=== PATIENT | female | born 1975 | race Caucasian/White ===

== ENCOUNTER 2023-10-21 08:10 | Outpatient (AMB) | payer OTHER, SELFPAY ==
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
[2023-10-21 08:14] VITALS: BP 122/70; PULSE 73; TEMP 36.8; O2SAT 98; BMI 22.1
== END 2023-10-21 08:47 | disposition home or self-care (01) ==
PROVIDERS: Visit Provider Physician Assistant
DX: J06.9 Acute upper respiratory infection, unspecified (principal); Z13.9 Encounter for screening, unspecified
CPT/HCPCS: 87880; 99203

== ENCOUNTER 2023-10-21 08:36 | Outpatient (REF) | payer OTHER, SELFPAY ==
[2023-10-21 11:20] LABS: Influenza A PCR NEGATIVE (Negative); Influenza B PCR NEGATIVE (Negative); Resp Syncy Virus RNA Qual PCR NEGATIVE (Negative); SARS COV2 PCR INHOUSE POSITIVE (Negative)
== END 2023-10-21 08:37 | disposition home or self-care (01) ==
LOC: HO.LAB 08:36
PROVIDERS: Visit Provider Physician Assistant
DX: J06.9 Acute upper respiratory infection, unspecified (principal)
CPT/HCPCS: 0241U

== ENCOUNTER 2023-10-30 14:38 | Outpatient (AMB) | payer OTHER, SELFPAY ==
[2023-10-30 14:40] VITALS: BP 118/66; PULSE 80; O2SAT 99; BMI 22.1
--- NOTE | 2023-10-30 14:40 | AM.OFFWIN_ITS ---
Intake Vital Signs 10/30/23 14:40 Height 5 ft 6 in Weight 137 lb BMI 22.1 BP 118/66 Blood Pressure Location Lt brachial Position Sitting Pulse 80 Pulse Source Pulse Oximeter Pulse Oximetry (%) 99 Oxygen Delivery Method Room Air Intake Visit Reasons: EP- throat glands are swollen Intake Note: Pt presents to the office today for c/o her glands in her neck being swollen for 2 days. Pt states she was here last Thursday and was diagnosed with COVID. Patient Tobacco Use Status: Never used Tobacco Allergies No Known Allergies Allergy (Verified 10/30/23 14:42) HPI HPI Comments History of Present Illness Details 48 y/o female patient who presents to [facility] walk in clinic with c/o swollen gland right neck. She was diagnosed with COVID infection 1.5 ago. Reports feeling better, no fevers, chills, nausea or vomiting. Reports noticed the swelling this morning, very tender to touch. PFSH Social History Patient Tobacco Use Status: Never used Tobacco Review of Systems Const All systems reviewed & are unremarkable except as noted in HPI and below Physical Exam Vital Signs: Last Vital Signs Pulse 80 10/30/23 14:40 BP 118/66 10/30/23 14:40 Pulse Ox 99 10/30/23 14:40 Oxygen Delivery Method Room Air 10/30/23 14:40 BMI result Body Mass Index 22.1 Const General: cooperative and no acute distress Orientation/consciousness: patient oriented x3 Neck Neck: Yes lymphadenopathy (right submandibular node swollen), No tracheal deviation and Yes no JVD Lymphatic: lymphadenopathy (right submandibular node) Resp Effort & Inspection: normal respiratory effort and able to speak in complete sentences Auscultation: clear to auscultation bilaterally, no crackles, no rales, no rhonchi and no wheezes Cardio Heart sounds: S1 normal heart sound present and S2 normal heart sound present Neuro General: patient oriented x3 Assessment & Plan Assessment & Plan (1) Lymphadenopathy: Code(s): R59.1 - Generalized enlarged lymph nodes Plan: IceHot NSAIDs for pain relief Rest and hydrate well Coding Level of Care Code Est Pt Level 3 (25143) Diagnoses Lymphadenopathy R59.1 Time Spent (min) 15
== END 2023-10-30 15:11 | disposition home or self-care (01) ==
PROVIDERS: Visit Provider Nurse Practitioner Family
DX: R59.1 Generalized enlarged lymph nodes (principal)
CPT/HCPCS: 99213

== ENCOUNTER 2023-12-31 18:47 | Emergency (ER) | payer OTHER, SELFPAY ==
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
[2023-12-31 19:06] VITALS: BP 157/79; BP 170/98; PULSE 70; PULSE 72; RESP 16; TEMP 36.6; O2SAT 100; BMI 21.0
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
[2023-12-31 20:28] VITALS: BP 159/83; PULSE 66; RESP 18; TEMP 36.7; O2SAT 100
[2023-12-31] MEDS: LORazepam 0.5 MG TABLET PO (22:50)
[2023-12-31] MEDS: carBAMazepine 100 MG TAB.CHEW PO (22:50)
[2023-12-31 22:58] VITALS: BP 129/73; PULSE 86; RESP 16; TEMP 36.8; O2SAT 99
== END 2023-12-31 22:58 | disposition home or self-care (01) ==
PROVIDERS: Emergency Provider Emergency Medicine; PCP Nurse Practitioner Adult Health
DX: S09.90XA Unspecified injury of head, initial encounter (principal); V43.52XA Car driver injured in collision with other type car in traffic accident, initial encounter; W22.10XA Striking against or struck by unspecified automobile airbag, initial encounter; Y93.9 Activity, unspecified; Y92.9 Unspecified place or not applicable; Y99.9 Unspecified external cause status; R51.9 Headache, unspecified; M54.2 Cervicalgia
CPT/HCPCS: 70450; 72125; 99284

== ENCOUNTER 2024-07-12 12:56 | Outpatient (AMB) | payer OTHER, SELFPAY ==
[2024-07-12 12:58] VITALS: BP 102/57; PULSE 55; RESP 14; TEMP 36.5; O2SAT 100; BMI 22.6
--- NOTE | 2024-07-12 12:58 | A.OFFPC_ITS ---
Vital Signs 07/12/24 12:58 Height 5 ft 6 in Weight 140 lb BMI 22.6 BP 102/57 L Respiration 14 Pulse 55 Pulse Source Pulse Oximeter Temp 97.7 F Temp Source Temporal Artery Scan Pulse Oximetry (%) 100 Oxygen Delivery Method Room Air Intake Visit Reasons: establish care - see comments Fleet Administrative Assistant Required: No Accompanied by: Self / Same As Patient Allergies No Known Allergies Allergy (Verified 07/12/24 13:34) Medication List - Last Reconciled 07/12/24 by Drew Quinteros MD carbamazepine mg PO levonorgestrel-ethinyl estrad 0.1-20 mg-mcg (Lessina) 1 tab PO DAILY lorazepam mg PO Tobacco use date assessed: 07/12/24 Dental Screening Dental Screen Date: 07/12/24 Did you have a dental visit in the last 12 months?: Yes Did you have a dental problem in the last 6 months where you did not have access to dental care?: No Was dental information given to patient?: Patient has dentist [facility] Medical History (Updated 07/12/24 @ 13:35 by Drew Quinteros MD) Trigeminal neuralgia Generalized anxiety disorder Family History Father BP (high blood pressure) Mother Low thyroxine (T4) level Social History Housing: House Alcohol intake: current Alcohol intake frequency: holidays/special occasions only Alcohol type: hard liquor Patient Tobacco Use Status: Never used Tobacco service: No Current occupational status: employed Cognitive needs: No Hearing needs: No Vision needs: Yes (rx glasses) Questionnaire PHQ-9 Over the last 2 weeks, how often have you been bothered by any of the following problems? 1. Little interest or pleasure in doing things: not at all 2. Feeling down, depressed, or hopeless: not at all 3. Trouble falling or staying asleep, or sleeping too much: not at all 4. Feeling tired or having little energy: not at all 5. Poor appetite or overeating: not at all 6. Feeling bad about yourself - or that you are a failure or have let yourself or your family down: not at all 7. Trouble concentrating on things, such as reading the newspaper or watching television: not at all 8. Moving or speaking so slowly that other people could have noticed. Or the opposite - being so fidgety or restless that you have been moving around a lot more than usual: not at all 9. Thoughts that you would be better off or of hurting yourself in some way: not at all Total score: 0 Depression Screening Interpretation: Negative Depression Screening Done: Yes Source: Developed by Drs. Martell Torres, Ava Bhatia, Giovanni Herman and colleagues, with an educational tanisha from [employer]. Thrive Questionnaire Date Thrive assessed: 07/12/24 I am a: Patient What is your living situation today?: I have a steady place to live Within the past 12 months, did the food you bought not last and you didn't have the money to get more?: Never true Within the past 12 months, did you worry whether your food would run out before you got money to buy more?: Never true Do you have trouble paying for medicines?: No Do you have trouble getting transportation to medical appointments?: No Do you have trouble paying your heating and electricity bill?: No Do you have trouble taking care of your child, family member or friend?: No Do you have trouble with day-to-day activities such as bathing, preparing meals, shopping, managing finances, etc.?: No Are you currently unemployed and looking for a job?: No Are you interested in more education?: No Please select the resources that you would like help with: None Currently or been in a relationship where the following occur: No concerns rep orted THRIVE Score: 0 AUDIT C Alcohol Use Questionnaire (AUDIT-C) 1. How often do you have a drink containing alcohol?: Monthly or less 2. How many drinks containing alcohol do you have on a typical day when you are drinking?: 1 or 2 3. How often do you have six or more drinks on one occasion?: Never Total Score: 1 NATASHA-7 AMB Questionnaire NATASHA-7 Date NATASHA - 7 assessed: 07/12/24 Feeling nervous, anxious, or on edge: 0 = Not at all Not being able to stop or control worryin = Not at all Worrying too much about different things: 0 = Not at all Trouble relaxin = Not at all Being so restless that it is hard to sit still: 0 = Not at all Becoming easily annoyed or irritable: 0 = Not at all Feeling afraid as if something awful might happen: 0 = Not at all Total NATASHA-7 score (0-4 normal; 5-9 mild; 10-14 moderate; 15-21 severe): 0 Source: Developed by Drs. Martell Torres, Ava Bhatia, Giovanni Herman and colleagues, with an educational tanisha from [employer]. Physical exam (Primary Care) Vital Signs: Last Vital Signs Temp 97.7 F 07/12/24 12:58 Pulse 55 07/12/24 12:58 Resp 14 07/12/24 12:58 BP 102/57 L 07/12/24 12:58 Pulse Ox 100 07/12/24 12:58 Oxygen Delivery Method Room Air 07/12/24 12:58 Care Plan Goal for BP management: Blood pressure is in range. BMI result Body Mass Index 22.6 Tobacco/Smoking Status: Tobacco use Status Tobacco use date assessed 07/12/24 07/12/24 13:08 Patient Tobacco Use Status Never used Tobacco 07/12/24 13:08 PHQ-9: PHQ-9 Score PHQ-9: Total score 0 07/12/24 13:08 Depression Screening Interpretation: Negative Thrive Assessment: Date of Thrive Assessment Date Thrive assessed 07/12/24 07/12/24 13:08 Currently or been in a relationship where the following occur: No concerns reported Coding Level of Care Code New Pt Level 4 (06285) Complex EM visit Add On G2211 Diagnoses Generalized anxiety disorder F41.1 Trigeminal neuralgia G50.0 Assessment & Plan Assessment & Plan (1) Generalized anxiety disorder: Code(s): F41.1 - Generalized anxiety disorder Category: Medical Plan: Plan is to continue lorazepam at 0.25 mg once a day. Slowly taper over the coming weeks. Patient was offered SSRIs to treat her anxiety and mild depression. She will consider it. (2) Trigeminal neuralgia: Code(s): G50.0 - Trigeminal neuralgia Category: Medical Plan: Continue carbamazepine at current dosage. Plan History of Present Illness The patient is a 49-year-old female presenting with a history of long-term benzodiazepine use, specifically lorazepam, which was initially prescribed following a personal crisis about 20 years ago. The patient reports significant difficulty tapering the medication, experiencing headaches and focus issues when reducing the dose. Currently, she is on 0.25 mg of lorazepam nightly, more from necessity than preference. She attempted management with trazodone without success. The patient expresses a strong desire to discontinue lorazepam use entirely but seeks a structured and gradual tapering plan. She also has a longstanding history of trigeminal neuralgia, managed with carbamazepine on an as-needed basis. She identifies early signs of exacerbation and intervenes promptly with medication. Episodes are chronic, lasting several months, but do not occur frequently. Recently, the patient has experienced episodes of tachycardia, raising concerns due to her history of managing anxiety and changes in lorazepam dosage. Previous diastolic readings have been low, contributing to her anxiety about these symptoms. 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 - Lives alone with her cat. - Exercises regularly, engaging in weightlifting 4-6 days per week and has participated in fitness competitions. - Non-smoker. - No children. Review of Systems - Psychiatric: Reports difficulty in tapering off lorazepam, mild anxiety. - Neurological: Reports episodes of trigeminal neuralgia, currently under control. - Cardiovascular: Reports intermittent episodes of tachycardia. - Respiratory: Denies persistent respiratory symptoms. - Sleep: Reports difficulty with sleep without lorazepam. Physical Exam General: Cooperative and healthy appearing Nutritional Appearance: Well nourished Orientation/consciousness: Patient oriented x3 Limitations: No limitations Head: Normal to inspection General: Appearance normal, both eyes and all related structures Neck: Normal visual inspection Chest: Normal palpation of entire chest wall Respiratory: N ormal respiratory effort Neurology: Patient oriented x3, history of trigeminal neuralgia since August 2012, managed with carbamazepine as needed. Results Plan 1. Long-Term Use Of Lorazepam - Lorazepam 0.25 mg prescribed with a tapering plan. - Explore SSRIs for anxiety management in the future. 2. Trigeminal Neuralgia - Continue with carbamazepine on a prn basis. - Monitor symptom progression and manage accordingly. 3. Episodes Of Tachycardia - Assess anxiety as a potential cause; monitor symptoms. - Suggest relaxation techniques. 4. Low Diastolic Blood Pressure - Explain significance of low recordings; routine monitoring suggested. Discussion Notes I discussed with the patient the tapering of lorazepam, currently reduced to 0.25 mg nightly, and reassured her about the process. A gradual reduction while monitoring symptoms was emphasized. We talked about the potential benefits and risks of SSRIs for managing anxiety, framing them as a future consideration. Trigeminal neuralgia would continue being managed with carbamazepine. We addressed her concerns about tachycardia potentially linked with benzodiazepine adjustment, reinforcing the importance of monitoring. I advised her on the monitor use and suggested keeping an eye on blood pressure/diastolic readings that concerned her. Patient Instructions - Continue lorazepam 0.25 mg nightly; follow up on structured tapering. - Monitor and report any changes in episodes of tachycardia. - Use carbamazepine for trigeminal neuralgia as needed. - Track blood pressure if symptoms persist. - Consider mindfulness or relaxation techniques to reduce anxiety.
--- OUTSIDE RECORDS SUMMARY | 2024-07-12 13:58 | XMS_ITS | Clinical Summary ---
Author Organization [facility] ity Address [address] [place] [address] Care Team Providers Care Special Needs Teacher Name Role Phone Jessi Finch NP Primary Care Provider Surgical History Surgery Date Site/Laterality Comments OTHER SURGICAL HISTORY PROCEDURE: DENIES PREVIOUS SURGERY Medical History Medical History Date Comments Anxiety 05/07/2010 DX:Anxiety Trigeminal neuralgia 09/14/2012 DX:Trigemin al neuralgia; COMMENT: Dr. Bobby, Ted Cartagena, Marc- Neurontin; Tegretol MRI within normal limits 11/13 - off medications Family History Medical History Relation Name Comments Thyroid disease Brother 1 Hypertension Father Breast cancer Father's side p. aunt Diabetes Maternal Grandfather Breast cancer Other p great aunt Relation Name Status Comments Brother 1 Brother 2 Alive Father Alive Father's side p. aunt Alive Maternal Grandfather (Age 70's) Maternal Grandmother (Age 90's) Mother Alive Other p great aunt Paternal Grandfather (Age 82) Paternal Grandmother Alive Sister Alive Social History Tobacco Use Types Packs/Day Years Used Date Smoking Tobacco: Never Smokeless Tobacco: Never Alcohol Use Standard Drinks/Week Comments Yes 2.5 (1 standard drink = 0.6 oz p ure alcohol) Comments Unknown Sex and Gender Information Value Date Recorded Sex Assigned at Not on file Legal Sex Female 3:28 AM EST Gender Identity Not on file Sexual Orientation Not on file Obstetrics History Plan of Treatment Upcoming Encounters Date Type Department Care Team ([facility] Contact Info) Description 07/18/2024 7:30 AM EDT Appointment Radiology Department [address] [phone] Health Maintenance Due Date Last Done Comments Hepatitis B Vaccines (1 of 3 - 19+ 3-dose series) 1994 Cervical Cancer Screening: Pap Smear 1996 DTaP,Tdap,and Td Vaccines (3 - Td or Tdap) 04/25/2019 04/25/2009, 06/20/1999 Colorectal Cancer Screening: Colonoscopy 02/08/2022 Depression Screening 02/08/2022 HIV Screening 02/08/2022 Hepatitis C Screening 02/08/2022 Social Influencers of Health Screening 02/08/2022 COVID-19 Vaccine ( season) 2023 Influenza Vaccine (Season Ended) 2024 02/12/2010 Breast Cancer Screening 07/01/2025 07/02/19, 07/02/2023, 06/28/2022, Additional history exists HIB Vaccines Aged Out No longer eligi ble based on patient's age to complete this topic HPV Vaccines Aged Out No longer eligi ble based on patient's age to complete this topic Hepatitis A Vaccines Aged Out No long er eligible based on patient's age to complete this topic IPV Vaccines Aged Out No longer eligi ble based on patient's age to complete this topic MMR Vaccines Aged Out No longer eligi ble based on patient's age to complete this topic Meningococcal ACWY Vaccine Aged Out N o longer eligible based on patient's age to complete this topic Meningococcal B Vaccine Aged Out No l onger eligible based on patient's age to complete this topic Pneumococcal Vaccine: Pediatrics (0 to 5 Years) and At-Risk Patients (6 to 64 Years) Aged Out No longer eligible based on patient's age to complete this topic RSV Immunization Patients Under 20 months Aged Out No longer eligible based on patient's age to complete this topic Varicella Vaccines Aged Out No longer eligible based on patient's age to complete this topic Procedures Procedure Name Priority Date/Time Associated Diagnosis Comments SCREENING MAMMOGRAPHY BI 2-VIEW BREAST INC CAD Routine 07/02/2023 6:46 PM EDT Encounter for screening mammogram for malignant neoplasm of breast from Last 3 Months or Most Recently Relevant to Health Maintenance Results * SCREENING MAMMOGRAPHY BI 2-VIEW BREAST INC CAD (07/02/2023 6:46 PM EDT) Anatomical Region Laterality Modality Radiographic Kaleigh ging 06/28/2022 8:44 AM EDT Narrative 07/03/2023 9:00 AM EDT This is a summary report. The complete report is available in the patient's medical record. If you cannot access the medical record, please contact the sending organization for a detailed fax or copy. Exam: Screening mammogram Findings: Digital bilateral full-field screening mammography is performed with tomosynthesis and interpreted with the aid of computer-aided detection. ??Comparison is made with 06/28/2022 and as far back as 03/30/2019. Breast parenchyma is heterogeneously dense, which may obscure small masses. ??No new suspicious mass, architectural distortion, or suspicious calcifications. Impression: No mammographic evidence of malignancy. BI-RADS 1 - negative Procedure Note Nasreen Daley MD - 10/19/2023 This is a summary report. The complete report is available in thepatient's medical record. If you cannot access the medical record, pleasecontact the sending organization for a detailed fax or copy. Exam: Screening mammogram Findings: Digital bilateral full-field screening mammography is performedwith tomosynthesis and interpreted with the aid of computer-aideddetection. Comparison is made with 06/28/2022 and as far back 03/30/2019. Breast parenchyma is heterogeneously dense, which may obscure smallmasses. No new suspicious mass, architectural distortion, or suspiciouscalcifications. Impression: No mammographic evidence of malignancy. BI-RADS 1 - negative Jessi Finch NP IMG XR PROCEDURES Final Resu lt from Last 3 Months or Most Recently Relevant to Health Maintenance Care Teams Special Needs Teacher Relationship Specialty Start Date End Date Jessi Finch NP [address] [place] [address] PCP - General Internal Medicine 12/21/15
--- OUTSIDE RECORDS SUMMARY | 2024-07-12 13:58 | XMS_ITS | Continuity of Care Document ---
Author Organization [facility] Adult Address [address] [place] [address]- Care Team Providers Care Cake Puller Name Role Phone Chato Gaming NP Primary Care Physician [place]counter [facility] [place] Date(s): 06/10/24 - 07/10/[address] [address]- Encounter Type: Triage Allergies, Adverse Reactions, Alerts No Known Allergies Immunizations Given and Recorded Vaccine Date Status Refusal Reason SARS-CoV-2 (COVID-19) mRNA-1273 vaccine 10/05/20 R ecorded SARS-CoV-2 (COVID-19) mRNA-1273 vaccine 09/07/20 R ecorded FluLaval (oldterm) 1 02/12/10 Given tetanus/diphtheria/pertussis, acel(Tdap) 04/25/09 Given tetanus-diphtheria toxoids (Td) 06/20/99 Recorded tetanus-diphtheria toxoids (Td) 2 06/12/99 Given tetanus-diphtheria toxoids (Td) 04/22/89 Recorded tetanus-diphtheria toxoids (Td) 05/31/80 Recorded Measles/Mumps/Rubella Virus Vaccine 04/22/89 Recor ded Measles/Mumps/Rubella Virus Vaccine 07/31/76 Recor ded Poliovirus Vaccine, Inactivated 05/31/80 Recorded Poliovirus Vaccine, Inactivated 11/30/76 Recorded Poliovirus Vaccine, Inactivated 75 Recorded Poliovirus Vaccine, Inactivated 75 Recorded Poliovirus Vaccine, Inactivated 75 Recorded diphtheria/tetanus/pertussis, acel(DTaP) 11/30/76 Recorded diphtheria/tetanus/pertussis, acel(DTaP) 75 Recorded diphtheria/tetanus/pertussis, acel(DTaP) 75 Recorded diphtheria/tetanus/pertussis, acel(DTaP) 75 Recorded 1Admin Note: BIOMEDICAL LES PT DECLINED 2Admin Note: historical data Medications carbamazepine 100mg/5ml Suspension 7.5 mL, By Mouth, 2 times a day, SHAKE LIQUID., # 450 mL, 11 Refills, Maintenance, 02/09/24 5:02:00PM EST, [facility] #[id number], 166.7, cm, 02/08/24 12:58:00 EST, Height, 62.9, kg, 02/08/24 12:58:00 EST, Dry Weight Start Date: 02/09/24 Stop Date: 02/03/25 Status: Ordered Quantity: 450.0 Unit: mL Repeat number: 12 traZODone 50 mg oral tablet 25 mg, 0.5, tablet, By Mouth, Daily at bedtime, PRN, # 15 tablet, Refills 0, Tot. Refills 0, Maintenance, Sleep, 05/30/24 5:11:00 PM EDT, Route to Pharmacy Electronically, [facility] #[id number],Partial fill upon patient request if the prescription is for a schedule II opioid drug., 166.7, cm,05/30/24 16:26:00 EDT, Height, 62.9, kg, 02/08/24 12:58:00 EST, Dry Weight Start Date: 05/30/24 Stop Date: 06/29/24 Status: Ordered Quantity: 15.0 Unit: tablet Repeat number: 1 Vienva 100 mcg-20 mcg oral tablet 1 tablet, By Mouth, Daily, 0 Refills, Maintenance, 11/16/18 9:24:19 PM EDT Start Date: 11/16/18 Status: Ordered Repeat number: 1 Problem List Condition Confirmation Course Effective Dates Status Health St [facility] Informant Anxiety Confirmed Active Family history of breast disorder 1 Confirmed Active Disorder of trigeminal nerve Confirmed Active 1breast aunt Social History Social History Type Response Smoking Status Never smoker entered on: 07/30/15 Sex Sex Representation Female (finding) Patient Care team information Care Team Personnel Name: Chato Gaming NP Position[facility] Associate Professional Member Role: PCP Address: [address] [place] [phone]- Telecom: Care Team Related Persons Name: CDOY MURRELL Name: VICTOR M MURRELL Insurance Providers Guarantor name: TO HANDY [facility] Plan Information #: 1 Payer: [facility] Member Number: NA Policy Number: NA Group Number: NA
--- OUTSIDE RECORDS SUMMARY | 2024-07-12 13:58 | XMS_ITS | Continuity of Care Document ---
Author Organization [facility] Adult Address [address] [place] [address]- Care Team Providers Care Senior Logistics Manager Name Role Phone Chato Gaming NP Primary Care Physician [place] [facility] [place](s[place] 06/10/24 - 07/10/[address] [address]- Encounter Type: Triage Allergies, Adverse Reactions, Alerts [...] mL, 11 Refills, Maintenance, 02/09/24 5:02:00PM EST, [facility] #[id number], 166.7, cm, 02/08/24 12:58:00 EST, Height, 62.9, kg, 02/08/24 12:58:00 EST, Dry Weight Start Date: 02/09/24 Stop Date: 02/03/25 Status: Ordered Quantity: 450.0 Unit: mL Repeat number: 12 traZODone 50 mg oral tablet 25 mg, 0.5, tablet, By Mouth, Daily at bedtime, PRN, # 15 tablet, Refills 0, Tot. Refills 0, Maintenance, Sleep, 05/30/24 5:11:00 PM EDT, Route to Pharmacy Electronically, [facility] #[id number],Partial fill upon patient request if the prescription [...] Team Personnel Name: Chato Gaming NP Position: [facility] Associate Professional Member Role: PCP Address: [address] [place] [phone]- Telecom: Care Team Related Persons Name: CODY MURRELL Name: VICTOR M MURRELL Insurance Providers Guarantor name: TO HANDY [facility] Plan Information #: 1 Payer: [facility] Member Number: NA Policy Number: NA Group Number: NA
--- OUTSIDE RECORDS SUMMARY | 2024-07-12 13:58 | XMS_ITS | Continuity of Care Document ---
Author Organization [facility] Adult Address [address] [place] [address]- Care Team Providers Care Set Designer Name Role Phone Chato Gaming NP Primary Care Physician [phone] Encounter [facility] [place] Date(s): 06/10/24 - 07/10/[address] [address]- Encounter Type: Triage Allergies, Adverse Reactions, Alerts [...] mL, 11 Refills, Maintenance, 02/09/24 5:02:00PM EST, [facility] #[id number], 166.7, cm, 02/08/24 12:58:00 EST, Height, 62.9, kg, 02/08/24 12:58:00 EST, Dry Weight Start Date: 02/09/24 Stop Date: 02/03/25 Status: Ordered Quantity: 450.0 Unit: mL Repeat number: 12 traZODone 50 mg oral tablet 25 mg, 0.5, tablet, By Mouth, Daily at bedtime, PRN, # 15 tablet, Refills 0, Tot. Refills 0, Maintenance, Sleep, 05/30/24 5:11:00 PM EDT, Route to Pharmacy Electronically, [facility] #[id number],Partial fill upon patient request if the prescription [...] Team Personnel Name: Chato Gaming NP Position: [facility] Associate Professional Member Role: PCP Address: [address] [place] [phone] Telecom: Care Team Related Persons Name: CODY MURRELL Name: VICTOR M MURRELL Insurance Providers Guarantor name: TO HANDY [place] Plan Information #: 1 Payer: [facility] Member Number: NA Policy Number: NA Group Number: NA
== END 2024-07-12 13:35 | disposition home or self-care (01) ==
LOC: HO.HMCSH 12:56
PROVIDERS: PCP Internal Medicine; Visit Provider Internal Medicine
DX: F41.1 Generalized anxiety disorder (principal); G50.0 Trigeminal neuralgia

== ENCOUNTER → 2024-07-12 12:56 | Outpatient (BNVA) | payer OTHER, SELFPAY | PROVIDERS: PCP Internal Medicine; Visit Provider Internal Medicine | DX: Z13.89 Encounter for screening for other disorder (principal) ==

== ENCOUNTER 2024-07-16 08:28 | Outpatient (REF) | payer OTHER, SELFPAY ==
[2024-07-16 11:32] LABS: Hematocrit 36.9 % (37.0-47.0); Hemoglobin 12.4 g/dl (12.0-16.0); Mean Corpuscular HGB Conc 33.6 g/dl (31.0-35.0); Mean Corpuscular Hemoglobin 32.3 pg (27.0-33.0); Mean Corpuscular Volume 96.1 fL (80.0-98.0); Mean Platelet Volume 10.3 fL (9.4-12.3); Platelet Count 289 X10*3/uL (160-400); Red Blood Count 3.84 X10*6/uL (4.20-5.50); Red Cell Distribution Width 12.3 % (11.0-16.0); White Blood Count 4.8 X10*3/uL (4.8-10.8)
[2024-07-16 11:34] LABS: Appearance Urine Clear; Color Urine Yellow; Glucose Urine UA Negative (Negative); Leukocyte Esterase Urine Small (1+) (Negative); Nitrite Urine Negative (Negative); PH 5.5 (5.0-9.0); Specific Gravity - Urine >= 1.030 (1.005-1.025); UMIC TRIGGER UA YES; Urine Blood Moderate (2+) (Negative); Urine Ketones Trace mg/dL (Negative); Urine Protein Negative (Neg-Trace)
[2024-07-16 11:45] LABS: Bacteria Urine 2+ (None Seen); Hyaline Casts Urine 0-2 /LPF (0-2); WBC Urine 21-50 /HPF (0-5)
[2024-07-16 11:53] LABS: Alanine Aminotransferase 26 U/L (0-31); Albumin Level 3.9 g/dL (3.5-5.0); Alkaline Phosphatase 73 U/L (39-117); Anion Gap 11 (12-20); Aspartate Amino Transferase 39 U/L (5-31); Bilirubin Direct < 0.2 mg/dL (0.0-0.5); Bilirubin Total 0.2 mg/dL (0.0-1.0); Blood Urea Nitrogen 20 mg/dL (9-16); Carbon Dioxide 25 mmol/L (22-29); Chloride 110 mmol/L (96-108); Cholesterol 144 mg/dL (<200); Estimated Glomerular Filt Rate > 60; Glucose Random 104 mg/dL (60-115); HDL Cholesterol 48 mg/dL (>40); LDL Cholesterol Calculated 84 mg/dL (<100); Potassium 4.2 mmol/L (3.3-5.1); Sodium 142 mmol/L (135-145); Triglycerides 63 mg/dL (<150)
[2024-07-16 11:57] LABS: Thyroid Stimulating Hormone 1.58 uIU/mL (0.32-4.0)
== END 2024-07-16 08:29 | disposition home or self-care (01) ==
LOC: HO.HMGCLDS 08:28
PROVIDERS: PCP Internal Medicine; Visit Provider Internal Medicine
DX: F41.1 Generalized anxiety disorder (principal); G50.0 Trigeminal neuralgia
CPT/HCPCS: 36415; 80048; 80061; 80076; 81001; 84443; 85027

== ENCOUNTER 2025-01-16 13:59 | Outpatient (AMB) | payer OTHER, SELFPAY ==
[2025-01-16 14:06] VITALS: BP 111/55; PULSE 60; RESP 14; TEMP 36.6; O2SAT 98; BMI 21.8
--- NOTE | 2025-01-16 14:06 | A.OFFPC_ITS ---
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 - The patient is scheduled to undergo mi crovascular decompression surgery for trigeminal neuralgia in January at [facility]. - For management of her trigeminal neura lgia, she currently takes carbamazepine 100 mg/5 mL, 5 mL twice daily, and reports that without it, she experiences pain. - Her surgeon has instructed her to tape r off carbamazepine two weeks prior to her surgery. - She has a pre-operative MRI scheduled for this Thursday. - She is also taking lorazepam 0.5 mg, w hich she is tapering by cutting the tablets in half and taking them every other day, as advised by her therapist. - Her other medication is lisinopril. - For health maintenance, her last mammo gram was in March and she gets one every year. - She has a colonoscopy scheduled for 2015. - She declined a flu shot. 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 - Functional Status: She reports she is able to work and is functioning well. - Exercise: She exercises five days a we ek, which includes doing weights and some cardio. Results - Labs: Blood work from June was noted to be good. [facility] Medical History Trigeminal neuralgia Generalized anxiety disorder Family History Father BP (high blood pressure) Mother Low thyroxine (T4) level Social History Housing: House Alcohol intake: current Alcohol intake frequency: holidays/special occasions only Alcohol type: hard liquor Patient Tobacco Use Status: Never used Tobacco service: No Current occupational status: employed Cognitive needs: No Hearing needs: No Vision needs: Yes (rx glasses) Questionnaire PHQ-9 Over the last 2 weeks, how often have you been bothered by any of the following problems? 1. Little interest or pleasure in doing things: not at all 2. Feeling down, depressed, or hopeless: not at all 3. Trouble falling or staying asleep, or sleeping too much: not at all 4. Feeling tired or having little energy: not at all 5. Poor appetite or overeating: not at all 6. Feeling bad about yourself - or that you are a failure or have let yourself or your family down: not at all 7. Trouble concentrating on things, such as reading the newspaper or watching television: not at all 8. Moving or speaking so slowly that other people could have noticed. Or the opposite - being so fidgety or restless that you have been moving around a lot more than usual: not at all 9. Thoughts that you would be better off or of hurting yourself in some way: not at all Total score: 0 Depression Screening Interpretation: Negative Depression Screening Done: Yes Source: Developed by Drs. Martell Torres, Ava Bhatia, Giovanni Herman and colleagues, with an educational tanisha from [employer]. Thrive Questionnaire Date Thrive assessed: 07/12/24 I am a: Patient What is your living situation today?: I have a steady place to live Within the past 12 months, did the food you bought not last and you didn't have the money to get more?: Never true Within the past 12 months, did you worry whether your food would run out before you got money to buy more?: Never true Do you have trouble paying for medicines?: No Do you have trouble getting transportation to medical appointments?: No Do you have trouble paying your heating and electricity bill?: No Do you have trouble taking care of your child, family member or friend?: No Do you have trouble with day-to-day activities such as bathing, preparing meals, shopping, managing finances, etc.?: No Are you currently unemployed and looking for a job?: No Are you interested in more education?: No Please select the resources that you would like help with: None Currently or been in a relationship where the following occur: No concerns reported THRIVE Score: 0 AUDIT C Alcohol Use Questionnaire (AUDIT-C) 1. How often do you have a drink containing alcohol?: Monthly or less 2. How many drinks containing alcohol do you have on a typical day when you are drinking?: 1 or 2 3. How often do you have six or more drinks on one occasion?: Never Total Score: 1 NATASHA-7 AMB Questionnaire NATASHA-7 Date NATASHA - 7 assessed: 07/12/24 Feeling nervous, anxious, or on edge: 0 = Not at all Not being able to stop or control worryin = Not at all Worrying too much about different things: 0 = Not at all Trouble relaxin = Not at all Being so restless that it is hard to sit still: 0 = Not at all Becoming easily annoyed or irritable: 0 = Not at all Feeling afraid as if something awful might happen: 0 = Not at all Total NATASHA-7 score (0-4 normal; 5-9 mild; 10-14 moderate; 15-21 severe): 0 Source: Developed by Drs. Martell Torres, Ava Bhatia, Giovanni Herman and colleagues, with an educational tanisha from [employer]. Review of Systems Narrative Review of Systems - Neurological: Reports facial pain if she does not take carbamazepine. - Vision: Reports vision is okay and wears glasses for distance viewing. - Eyes: Denies seeing halos. - Hearing: Reports hearing is okay. - Constitutional: Reports ability to function and work. Physical exam (Primary Care) Vital Signs: Last Vital Signs Temp 97.8 F 01/16/25 14:06 Pulse 60 01/16/25 14:06 Resp 14 01/16/25 14:06 BP 111/55 L 01/16/25 14:06 Pulse Ox 98 01/16/25 14:06 Oxygen Delivery Method Room Air 01/16/25 14:06 BMI result Body Mass Index 21.8 Tobacco/Smoking Status: Tobacco use Status Tobacco use date assessed 07/12/24 01/16/25 14:08 Patient Tobacco Use Status Never used Tobacco 01/16/25 14:08 PHQ-9: PHQ-9 Score PHQ-9: Total score 0 01/16/25 14:32 Depression Screening Interpretation: Negative Thrive Assessment: Date of Thrive Assessment Date Thrive assessed 07/12/24 01/16/25 14:08 Currently or been in a relationship where the following occur: No concerns reported Narrative Physical Exam General: Cooperative and healthy appearing Nutritional Appearance: Well nourished Orientation/consciousness: Patient oriented x3 Limitations: No limitations Head: Normal to inspection General: Appearance normal, both eyes and all related structures Neck: Normal visual inspection Chest: Normal palpation of entire chest wall Respiratory: Normal respiratory effort Neurology: Patient oriented x3 Office Procedures Flu Questionnaire Does the patient have a severe egg allergy?: No Does the patient have severe life threatening allergies?: No Does the patient have a fever or illness today?: No Has the patient ever had Guillain-[place] Syndrome?: No Has the patient ever had any past reaction to a flu shot?: No Immunizations Fluarix [id number] (PF) 45 mcg (15 mcg x 3)/0.5 mL IM syringe Performing Provider: Drew Quinteros MD [facility] [place] [facility] Documented (not given) by: MARTINA Feliciano on 01/16/25 14:33 Reason Not Given: Patient Refused Coding Level of Care Code Est Pt Level 4 (31505) Complex EM visit Add On G2211 Diagnoses Generalized anxiety disorder F41.1 Assessment & Plan Assessment & Plan (1) Generalized anxiety disorder: Code(s): F41.1 - Generalized anxiety disorder Category: Medical Plan Plan - The patient will continue to taper off lorazepam as directed by her therapist. - For trigeminal neuralgia, the patient will continue taking carbamazepine and proceed with the scheduled microvascular decompression surgery in January. - A pre-operative MRI is scheduled for Thursday. - The patient will inquire with her surgeon about the rationale for tapering off carbamazepine two weeks prior to the surgery. - The patient will continue lisinopril. - A colonoscopy is scheduled for April. - The patient declines a flu shot at this time. - A follow-up appointment is scheduled in six months. Discussion Notes I reviewed the patient's current medications, including her plan to taper lorazepam as guided by her therapist, and her ongoing use of carbamazepine for trigeminal neuralgia. We discussed her upcoming microvascular decompression surgery in January and the pre-operative MRI scheduled for this Thursday. I advised her to ask her surgeon for the reasoning behind tapering her carbamazepine two weeks before the procedure. We confirmed her health maintenance screenings, noting her mammogram is up to date and a colonoscopy is scheduled for April. She declined a flu shot today. We will follow up in six months. Patient Instructions - Continue to slowly reduce your dose of lorazepam as instructed by your therapist. - Continue taking your carbamazepine for facial pain as prescribed. - In two weeks, begin to taper off your carbamazepine as your surgeon instructed before your surgery in January. - You have an MRI scheduled this Thursday. - Make sure to ask your surgeon why he wants you to taper off the carbamazepine. - Continue with your plan to have a colonoscopy in April. - Please follow up in our office in six months. Orders: Orders Influenza [id number] Immunization Today Z23 - Encounter for immunization
== END 2025-01-16 14:56 | disposition home or self-care (01) ==
LOC: HO.HMCSH 13:59
PROVIDERS: PCP Internal Medicine; Visit Provider Internal Medicine
DX: Z23 Encounter for immunization (principal); F41.1 Generalized anxiety disorder

== ENCOUNTER → 2025-01-16 13:59 | Outpatient (BNVA) | payer OTHER, SELFPAY | PROVIDERS: PCP Internal Medicine; Visit Provider Internal Medicine | DX: F41.1 Generalized anxiety disorder (principal); G50.0 Trigeminal neuralgia; Z28.21 Immunization not carried out because of patient refusal | CPT/HCPCS: 90471; 96127 ==